=== PATIENT | male | born 1995 | race Two or more races ===

== ENCOUNTER 2020-10-15 17:23 | Observation (INO) | payer BC ==
[~2020-10-15] VITALS: Ht 172.7 cm; Wt 88.4 kg
--- NOTE | 2020-10-15 18:28 | PHYS DOC ---
General Adult EDM: Chief Complaint: ABDOMINAL PAIN HPI: HPI: 25-year-old male who has no past medical or surgical history presents with a chief complaint of right lower quadrant abdominal pain. Patient states abdominal pain started 2200 yesterday. Patient states pain has been constant since onset. Patient states the pain does not radiate. Patient has associated nausea but has not vomited. Pain is exacerbated with movement and relieved with rest. Patient denies any diarrhea states he has had urinary frequency but denies any dysuria. Review of Systems: Review of Systems: Constitutional: Denies fever or chills. [] Eyes: Denies change in visual acuity. [] HENT: Denies nasal congestion or sore throat. [] Respiratory: Denies cough or shortness of breath. [] Cardiovascular: Denies chest pain or edema. [] GI: Positive abdominal pain, Positive nausea, no vomiting, bloody stools or diarrhea. [] : Denies dysuria. [] Musculoskeletal: Denies back pain or joint pain. [] Integument: Denies rash. [] Neurologic: Denies headache, focal weakness or sensory changes. [] Endocrine: Denies polyuria or polydipsia. [] Lymphatic: Denies swollen glands. [] Psychiatric: Denies depression or anxiety. [] Heart Score: Risk Factors: Risk Factors: DM, Current or recent (<one month) smoker, HTN, HLP, family history of CAD, obesity. Risk Scores: Score 0 - 3: 2.5% MACE over next 6 weeks - Discharge Home Score 4 - 6: 20.3% MACE over next 6 weeks - Admit for Clinical Observation Score 7 - 10: 72.7% MACE over next 6 weeks - Early Invasive Strategies Allergies: Allergies: Allergies Coded Allergies Type Severity Reaction Last Updated Verified Penicillins Allergy Unknown 10/15/20 Yes Physical Exam: PE: General: alert, no acute distress. Skin: warm, dry and intact. Head:: Normocephalic, atraumatic. Neck: Trachea midline. Eyes: EOMI, Normal conjunctiva, No drainage CARDIOVASCULAR: Regular rate and rhythm RESPIRATORY: No respiratory distress Back: Full range of motion. MUSCULOSKELETAL: Full range of motion of bilateral upper and lower extremities. GASTROINTESTINAL: Abdomen soft without rebound or guarding. Tenderness to palpation right lower quadrant NEUROLOGICAL: Alert and noted to person, place and time. No neurological deficits observed Psychiatric: Cooperative. Normal judgment EKG: EKG: [] Radiology/Procedures: Radiology/Procedures: [] Impression: IMPRESSION: Findings of acute appendicitis. No evidence for perforation or adjacent abscess. Exposure: One or more of the following in the visualized dose reduction techniqu es were utilized for this examination: 1. Automated exposure control 2. Adjustment of the MA and/or KV according to patient size 3. Use of iterative of reconstructive technique Course & Med Decision Making: Course & Med Decision Making Pertinent Labs and Imaging studies reviewed. (See chart for details) [] Was evaluated for chief complaint. Initial work-up includes laboratory analysis and radiologic imaging. Patient declined any pain or nausea medications at this time.. CT imaging consistent with acute pancreatitis. Results discussed with patient and significant other. Patient started on Levaquin and Flagyl. Patient's pain treated with morphine. Patient also received 1 L IV fluids. Patient requesting to eat--- allowed clear liquid diet then n.p.o. after midnight. Patient admitted hospitalist with general surgery consult. Discussed patient with Dr. Herr at 2030 Marian Disclaimer: Marian Disclaimer: This electronic medical record was generated, in whole or in part, using a voice recognition dictation system. Departure Departure Impression: Primary Impression: Acute appendicitis Disposition: ADMITTED INPT THIS HOSP Admitting Physician: JAZLYN Condition: STABLE Referrals: NO PCP (PCP) JUSTIN GORDON DO Oct 15, 2020 18:28
[2020-10-15 18:30] LABS: BASO # 0.1 x10^3/uL (0.0-0.2); BASO % 1 % (0-3); EOS # 0.2 x10^3/uL (0.0-0.7); EOS % 1 % (0-3); HEMATOCRIT 45.5 % (39.0-53.0); HEMOGLOBIN 15.5 g/dL (13.0-17.5); LYMPH # 2.5 x10^3/uL (1.0-4.8); LYMPH % 19 % (24-48); MEAN CORPUSCULAR HEMOGLOBIN 30 pg (25-35); MEAN CORPUSCULAR HGB CONC 34 g/dL (31-37); MEAN CORPUSCULAR VOLUME 88 fL (79-100); MONO # 0.8 x10^3/uL (0.0-1.1); MONO % 6 % (0-9); NEUT # 9.5 x10^3/uL (1.8-7.7); NEUT % 73 % (31-73); PLATELET COUNT 218 x10^3/uL (140-400); RED BLOOD COUNT 5.18 x10^6/uL (4.30-5.70); RED CELL DISTRIBUTION WIDTH 12.6 % (11.5-14.5)
[2020-10-15 18:43] LABS: CALCIUM 8.7 mg/dL (8.5-10.1); CREATININE 0.9 mg/dL (0.7-1.3); GFR 103.7; POTASSIUM 3.9 mmol/L (3.5-5.1)
[2020-10-15 18:48] LABS: ALBUMIN/GLOBULIN RATIO 1.2 (1.0-1.7); TOTAL BILIRUBIN 0.3 mg/dL (0.2-1.0); TOTAL PROTEIN 7.4 g/dL (6.4-8.2)
[2020-10-15] MEDS ORDERED: CONTRAST GIVEN. MC PRN (19:15)
[2020-10-15] MEDS ORDERED: IOHEXOL 300 MG/ML 100ML VIAL. IV ONE (19:15)
--- NOTE | 2020-10-15 19:45 | RAD ---
Exam: CT of abdomen and pelvis with contrast INDICATION: Abdominal pain, right lower quadrant pain TECHNIQUE: Sequential axial images through the abdomen and pelvis obtained following the administrati on of 75 mL of Omni 300 IV contrast. Sagittal and coronal reformatted images were reconstructed from the axial data and reviewed. Comparisons: None FINDINGS: Heart size is normal. No pericardial effusion. Visualized lung bases are clear. No pleural effusion. Liver, spleen, pancreas, gallbladder and adrenals are unremarkable. No perinephric inflammation or hydronephrosis. No renal or ureteral calculi are identified. Bladder is partially distended and not well evaluated. Prostate is not enlarged. Appendix is dilated with mild adjacent fat stranding. Remainder large and small bowel are unremarkabl e. No obstruction. Abdominal aorta has a normal course and caliber. Abdominal vasculature is patent. No enlarged intra-abdominal lymph nodes are identified. No suspicious osseous lesions or acute fractures. IMPRESSION: Findings of acute appendicitis. No evidence for perforation or adjacent abscess. Exposure: One or more of the following in the visualized dose reduction techniques were utilized for this examination: 1. Automated exposure control 2. Adjustment of the MA and/or KV according to patient size 3. Use of iterative of reconstructive technique Electronically signed by: Prem Diciknson MD (10/15/2020 7:43 PM) [facility]
[2020-10-15] MEDS ORDERED: MORPHINE SULFATE 4 MG/ML VIAL. IV ONE (20:30)
[2020-10-15] MEDS ORDERED: IV NORMAL SALINE 1000ML BAG 1,000 ML IV ONE (20:30)
[2020-10-15 21:50] VITALS: BP 121/78
[2020-10-15] MEDS: MORPHINE SULFATE 4 MG/ML VIAL. IV PRN (23:07)
[2020-10-16] MEDS: ONDANSETRON PF 4 MG/2 ML VIAL. IV PRN ×2 (00:04→18:22)
[2020-10-16 00:32] LABS: AMPHETAMINE/METHAMPHETAMINE NEG (NEG); BARBITURATES NEG (NEG); BENZODIAZEPINES NEG (NEG); CANNABINOIDS NEG (NEG); COCAINE NEG (NEG); METHADONE NEG (NEG); OPIATES POS (NEG); PHENCYCLIDINE NEG (NEG)
[2020-10-16 03:00] VITALS: BP 114/60
[2020-10-16] MEDS ORDERED: BUPIVACAINE-EPI 0.25% 30 ML VIAL KIT. ONE (05:59)
[2020-10-16] MEDS ORDERED: BUPIVACAINE-EPI 0.5% 30 ML VIAL KIT. ONE (06:15)
[2020-10-16] MEDS ORDERED: PROPOFOL 10 MG/ML (20ML) VIAL. IV ONE (06:27)
[2020-10-16] MEDS ORDERED: DEXAMETHASONE SOD PHOS 4 MG/ML VIAL ONE (06:27)
[2020-10-16] MEDS ORDERED: ROCURONIUM 50 MG/5 ML VIAL. ONE (06:27)
[2020-10-16] MEDS ORDERED: ONDANSETRON PF 4 MG/2 ML VIAL. ONE (06:27)
[2020-10-16] MEDS ORDERED: KETOROLAC 30 MG/ML VIAL. ONE (06:27)
[2020-10-16] MEDS ORDERED: fentaNYL PF VIAL 100 MCG/2 ML VIAL ONE (06:27)
--- NOTE | 2020-10-16 06:44 | PDOC2 ---
CONSULT Date of Consult Date of Consult DATE: 10/16/20 TIME: 06:42 History of Present Illness Reason for Visit: The patient is a 25 year old male who reported with a 1 day history of RLQ pain. He denies fever or vomiting. The ER evaluation included a CT scan which was consistent with appendicitis. Past Medical History Past Medical History denies Past Surgical History Past Surgical History parotid gland surgery Social History <1 pack per day ALCOHOL: social Current Problem List Problem List Problems Medical Problems: (1) Acute appendicitis Status: Acute Current Medications Current Medications Current Medications Iohexol (Omnipaque 300 Mg/ml) 75 ml 1X ONCE IV Last administered on 10/15/20at 19:28; Start 10/15/20 at 19:15; Stop 10/15/20 at 19:16; Status DC Info (CONTRAST GIVEN -- Rx MONITORING) 1 each PRN DAILY PRN MC SEE COMMENTS; Start 10/15/20 at 19:15; Stop 10/17/20 at 19:14 Ondansetron HCl (Zofran) 4 mg PRN Q8HRS PRN IV NAUSEA/VOMITING Last administered on 10/16/20at 00:04; Start 10/15/20 at 20:15; Stop 10/16/20 at 20:14 Morphine Sulfate (Morphine Sulfate) 4 mg PRN Q2HR PRN IV PAIN Last administered on 10/15/20at 23:07; Start 10/15/20 at 20:15; Stop 10/16/20 at 20:14 Morphine Sulfate (Morphine Sulfate) 4 mg 1X ONCE IV Last administered on 10/15/20at 20:26; Start 10/15/20 at 20:30; Stop 10/15/20 at 20:31; Status DC Sodium Chloride 1,000 ml @ 1,000 mls/hr 1X ONCE IV Last administered on 10/15/20at 20:26; Start 10/15/20 at 20:30; Stop 10/15/20 at 21:29; Status DC Levofloxacin/ Dextrose 150 ml @ 100 mls/hr Q25H IV ; Start 10/15/20 at 21:00; Stop 10/15/20 at 22:06; Status DC Metronidazole 100 ml @ 100 mls/hr Q8HRS IV Last administered on 10/16/20at 04:46; Start 10/16/20 at 06:00 Metronidazole 100 ml @ 100 mls/hr 1X ONCE IV Last administered on 10/15/20at 21:17; Start 10/15/20 at 21:00; Stop 10/15/20 at 21:59; Status DC Levofloxacin/ Dextrose 150 ml @ 100 mls/hr Q24H IV ; Start 10/15/20 at 22:15; Status Cancel Levofloxacin/ Dextrose 150 ml @ 100 mls/hr Q24H IV Last administered on 10/15/20at 23:11; Start 10/15/20 at 23:00 Bupivacaine HCl/ Epinephrine Bitart (Sensorcain-Epi 0.25% Kit) 30 ml STK-MED ONCE .ROUTE ; Start 10/16/20 at 05:59; Stop 10/16/20 at 06:00; Status DC Bupivacaine HCl/ Epinephrine Bitart (Sensorcain-Epi 0.5% Kit) 30 ml STK-MED ONCE .ROUTE ; Start 10/16/20 at 06:15; Stop 10/16/20 at 06:15; Status DC Fentanyl Citrate (Fentanyl 2ml Vial) 100 mcg STK-MED ONCE .ROUTE ; Start 10/16/20 at 06:27; Stop 10/16/20 at 06:27; Status DC Propofol (Diprivan) 200 mg STK-MED ONCE IV ; Start 10/16/20 at 06:27; Stop 10/16/20 at 06:27; Status DC Dexamethasone Sodium Phosphate (Decadron) 4 mg STK-MED ONCE .ROUTE ; Start 10/16/20 at 06:27; Stop 10/16/20 at 06:27; Status DC Ondansetron HCl (Zofran) 4 mg STK-MED ONCE .ROUTE ; Start 10/16/20 at 06:27; Stop 10/16/20 at 06:27; Status DC Ketorolac Tromethamine (Toradol 30mg Vial) 30 mg STK-MED ONCE .ROUTE ; Start 10/16/20 at 06:27; Stop 10/16/20 at 06:27; Status DC Rocuronium [place] (Zemuron) 50 mg STK-MED ONCE .ROUTE ; Start 10/16/20 at 06:27; Stop 10/16/20 at 06:28; Status DC Fentanyl Citrate (Fentanyl 2ml Vial) 25 mcg PRN Q5MIN PRN IVP MILD PAIN 1-3; Start 10/16/20 at 06:45; Stop 10/17/20 at 06:44 Fentanyl Citrate (Fentanyl 2ml Vial) 50 mcg PRN Q5MIN PRN IVP MODERATE PAIN 4- 6; Start 10/16/20 at 06:45; Stop 10/17/20 at 06:44 Morphine Sulfate (Morphine Sulfate) 1 mg PRN Q10MIN PRN IVP SEVERE PAIN 7-10; Start 10/16/20 at 06:45; Stop 10/17/20 at 06:44 Ringer's Solution 1,000 ml @ 30 mls/hr Q24H IV ; Start 10/16/20 at 06:45; Stop 10/16/20 at 18:44 Hydromorphone HCl (Dilaudid) 0.5 mg PRN Q10MIN PRN IVP SEVERE PAIN 7-10, 2nd CHOICE; Start 10/16/20 at 06:45; Stop 10/17/20 at 06:44 Prochlorperazine Edisylate (Compazine) 5 mg PACU PRN PRN IVP NAUSEA, MRX1; Start 10/16/20 at 06:45; Stop 10/17/20 at 06:44 Active Scripts Active Reported No Known Medications Prior To Admisstion (Info) Each 1 Each MC 1X Allergies Allergies: Coded Allergies: Penicillins (Verified Allergy, Intermediate, 10/15/20) ROS General: No: Chills, Night Sweats, Fatigue, Malaise, Appetite, Other PSYCHOLOGICAL ROS: No: Anxiety, Behavioral Disorder, Concentration difficultie, Decreased libido, Depression, Disorientation, Hallucinations, Hostility, Irritablity, Memory difficulties, Mood Swings, Obsessive thoughts, Physical abuse, Sexual abuse, Sleep disturbances, Suicidal ideation, Other Eyes: No Blurry vision, No Decreased vision, No Double vision, No Dry eyes, No Excessive tearing, No Eye Pain, No Itchy Eyes, No Loss of vision, No Photophobia, No Scotomata, No Uses contacts, No Uses glasses, No Other HEENT: No: Heacaches, Visual Changes, Hearing change, Nasal congestion, Nasal discharge, Oral lesions, Sinus pain, Sore Throat, Epistaxis, Sneezing, Snoring, Tinnitus, Vertigo, Vocal changes, Other Hematological and Lymphatic: No: Bleeding Problems, Blood Clots, Blood Transfusions, Brusing, Night Sweats, Pallor, Swollen Lymph Nodes, Other ENDOCRINE: No: Breast Changes, Galactorrhea, Hair Pattern Changes, Hot Flashes, Malaise/lethargy, Mood Swings, Palpitations, Polydipsia/polyuria, Skin Changes, Temperature Intolerance, Unexpected Weight Changes, Other Cardiovascular: No Chest Pain, No Palpitations, No Orthopnea, No Paroxysmal Noc. Dyspnea, No Edema, No Lt Headedness, No Other Gastrointestinal: Yes Abdominal Pain Genitourinary: No Dysuria, No Frequency, No Incontinence, No Hematuria, No Retention, No Discharge, No Urgency, No Pain, No Flank Pain, No Other, No , No , No , No , No , No , No Musculoskeletal: No Gait Disturbance, No Joint Pain, No Joint Stiffness, No Joint Swelling, No Muscle Pain, No Muscular Weakness, No Pain In:, No Swelling In:, No Other Neurological: No Behavorial Changes, No Bowel/Bladder ControlChng, No Confusion, No Dizziness, No Gait Disturbance, No Headaches, No Impaired Coord/balance, No Memory Loss, No Numbness/Tingling, No Seizures, No Speech Problems, No Tremors, No Visual Changes, No Weakness, No Other Skin: No Dry Skin, No Eczema, No Hair Changes, No Lumps, No Mole Changes, No Mottling, No Nail Changes, No Pruritus, No Rash, No Skin Lesion Changes, No Other, No Acne Physical Exam General: Alert, Oriented X3, Cooperative HEENT: Atraumatic Lungs: Clear to auscultation Heart: Regular rate Abdomen: Soft (tender in RLQ) Extremities: No clubbing, No cyanosis Skin: No rashes, No breakdown Neuro: Normal speech Psych/Mental Status: Mental status NL MUSCULOSKELETAL: No joint tenderness Vitals VITALS Vital Signs Date Time Temp Pulse Resp B/P (MAP) Pulse Ox O2 Delivery O2 Flow Rate FiO2 10/16/20 03:00 97.9 93 16 114/60 (78) 98 Room Air 97.9 Labs Labs Laboratory Tests Test 10/15/20 18:25 10/15/20 21:20 10/16/20 00:10 White Blood Count 13.0 x10^3/uL (4.0-11.0) Red Blood Count 5.18 x10^6/uL (4.30-5.70) Hemoglobin 15.5 g/dL (13.0-17.5) Hematocrit 45.5 % (39.0-53.0) Mean Corpuscular Volume 88 fL (79-100) Mean Corpuscular Hemoglobin 30 pg (25-35) Mean Corpuscular Hemoglobin Concent 34 g/dL (31-37) Red Cell Distribution Width 12.6 % (11.5-14.5) Platelet Count 218 x10^3/uL (140-400) Neutrophils (%) (Auto) 73 % (31-73) Lymphocytes (%) (Auto) 19 % (24-48) Monocytes (%) (Auto) 6 % (0-9) Eosinophils (%) (Auto) 1 % (0-3) Basophils (%) (Auto) 1 % (0-3) Neutrophils # (Auto) 9.5 x10^3/uL (1.8-7.7) Lymphocytes # (Auto) 2.5 x10^3/uL (1.0-4.8) Monocytes # (Auto) 0.8 x10^3/uL (0.0-1.1) Eosinophils # (Auto) 0.2 x10^3/uL (0.0-0.7) Basophils # (Auto) 0.1 x10^3/uL (0.0-0.2) Sodium Level 139 mmol/L (136-145) Potassium Level 3.9 mmol/L (3.5-5.1) Chloride Level 103 mmol/L (98-107) Carbon Dioxide Level 27 mmol/L (21-32) Anion Gap 9 (6-14) Blood Urea Nitrogen 16 mg/dL (8-26) Creatinine 0.9 mg/dL (0.7-1.3) Estimated GFR (Cockcroft-Gault) 103.7 BUN/Creatinine Ratio 18 (6-20) Glucose Level 96 mg/dL (70-99) Calcium Level 8.7 mg/dL (8.5-10.1) Total Bilirubin 0.3 mg/dL (0.2-1.0) Aspartate Amino Transf (AST/SGOT) 20 U/L (15-37) Alanine Aminotransferase (ALT/SGPT) 30 U/L (16-63) Alkaline Phosphatase 72 U/L (46-116) Total Protein 7.4 g/dL (6.4-8.2) Albumin 4.0 g/dL (3.4-5.0) Albumin/Globulin Ratio 1.2 (1.0-1.7) Lipase 87 U/L (73-393) SARS-CoV-2 Antigen (Rapid) Negative (NEGATIVE) Urine Opiates Screen Pos (NEG) Urine Methadone Screen Neg (NEG) Urine Barbiturates Neg (NEG) Urine Phencyclidine Screen Neg (NEG) Urine Amphetamine/Methamphetamine Neg (NEG) Urine Benzodiazepines Screen Neg (NEG) Urine Cocaine Screen Neg (NEG) Urine Cannabinoids Screen Neg (NEG) Urine Ethyl Alcohol Neg (NEG) Laboratory Tests Test 10/15/20 18:25 10/15/20 21:20 10/16/20 00:10 White Blood Count 13.0 x10^3/uL (4.0-11.0) Red Blood Count 5.18 x10^6/uL (4.30-5.70) Hemoglobin 15.5 g/dL (13.0-17.5) Hematocrit 45.5 % (39.0-53.0) Mean Corpuscular Volume 88 fL (79-100) Mean Corpuscular Hemoglobin 30 pg (25-35) Mean Corpuscular Hemoglobin Concent 34 g/dL (31-37) Red Cell Distribution Width 12.6 % (11.5-14.5) Platelet Count 218 x10^3/uL (140-400) Neutrophils (%) (Auto) 73 % (31-73) Lymphocytes (%) (Auto) 19 % (24-48) Monocytes (%) (Auto) 6 % (0-9) Eosinophils (%) (Auto) 1 % (0-3) Basophils (%) (Auto) 1 % (0-3) Neutrophils # (Auto) 9.5 x10^3/uL (1.8-7.7) Lymphocytes # (Auto) 2.5 x10^3/uL (1.0-4.8) Monocytes # (Auto) 0.8 x10^3/uL (0.0-1.1) Eosinophils # (Auto) 0.2 x10^3/uL (0.0-0.7) Basophils # (Auto) 0.1 x10^3/uL (0.0-0.2) Sodium Level 139 mmol/L (136-145) Potassium Level 3.9 mmol/L (3.5-5.1) Chloride Level 103 mmol/L (98-107) Carbon Dioxide Level 27 mmol/L (21-32) Anion Gap 9 (6-14) Blood Urea Nitrogen 16 mg/dL (8-26) Creatinine 0.9 mg/dL (0.7-1.3) Estimated GFR (Cockcroft-Gault) 103.7 BUN/Creatinine Ratio 18 (6-20) Glucose Level 96 mg/dL (70-99) Calcium Level 8.7 mg/dL (8.5-10.1) Total Bilirubin 0.3 mg/dL (0.2-1.0) Aspartate Amino Transf (AST/SGOT) 20 U/L (15-37) Alanine Aminotransferase (ALT/SGPT) 30 U/L (16-63) Alkaline Phosphatase 72 U/L (46-116) Total Protein 7.4 g/dL (6.4-8.2) Albumin 4.0 g/dL (3.4-5.0) Albumin/Globulin Ratio 1.2 (1.0-1.7) Lipase 87 U/L (73-393) SARS-CoV-2 Antigen (Rapid) Negative (NEGATIVE) Urine Opiates Screen Pos (NEG) Urine Methadone Screen Neg (NEG) Urine Barbiturates Neg (NEG) Urine Phencyclidine Screen Neg (NEG) Urine Amphetamine/Methamphetamine Neg (NEG) Urine Benzodiazepines Screen Neg (NEG) Urine Cocaine Screen Neg (NEG) Urine Cannabinoids Screen Neg (NEG) Urine Ethyl Alcohol Neg (NEG) Images Images CT abdomen/pelvis: IMPRESSION: Findings of acute appendicitis. No evidence for perforation or adjacent abscess. Assessment/Plan Assessment/Plan RLQ pain, suspect appendicitis, plan to OR for laparoscopy. MAXWELL LEPE MD Oct 16, 2020 06:44
[2020-10-16] MEDS ORDERED: PROCHLORPERAZINE 10 MG/2 ML VIAL. IVP PRN (06:45)
[2020-10-16] MEDS ORDERED: HYDROmorphone 2 MG/ML VIAL IVP PRN (06:45)
[2020-10-16] MEDS ORDERED: MORPHINE SULFATE 2 MG/ML VIAL. IVP PRN (06:45)
[2020-10-16] MEDS ORDERED: IV RINGERS,LACTATED 1000ML 1,000 ML IV SCH (06:45)
[2020-10-16] MEDS ORDERED: fentaNYL PF VIAL 100 MCG/2 ML VIAL IVP PRN ×2 (06:45)
--- NOTE | 2020-10-16 07:50 | PDOC4 ---
Operative Note Operative Note Preoperative Diagnosis: Acute Appendicitis Postoperative Diagnosis: Same Procedure: Laparoscopic appendectomy Surgeon: Nemesio Anesthesia: Gen. EBL: 10 mL Specimen: Appendix to pathology Drains: None Complications: None Indication: The patient is a 25-year-old male who reported to the emergency department with abdominal pain. The evaluation is consistent with acute appendicitis. The patient was offered surgical treatment with a laparoscopic appendectomy. The risks of surgery were discussed which include bleeding, infection, visceral injury, pain, anesthetic risk, potential need for additional surgery or procedure. The patient understands and would like to proceed. Description: The patient was taken to the operating room and placed supine on the operating table. Gen. anesthesia was performed. The abdomen was prepped with ChloraPrep and draped in a standard surgical manner. A supraumbilical incision was made through which a veress needle was inserted and a pneumoperitoneum was created. A visualized 5 mm trocar was inserted and the laparoscope was introd uced. In the left lower quadrant a 5 mm trocar was inserted. In the suprapubic region a 12 mm trocar was inserted. The appendix was identified and appeared inflamed consistent with acute appendicitis. There was no clear evidence of perforation or periappendiceal abscess. The mesoappendix was bluntly from the appendix. The mesoappendix was controlled using several clips and it was divided. The appendix was then amputated off the cecum using an Endo MIKE 45 stapling device. The appendix was then placed in an endoscopic bag and extracted at the suprapubic incision site. The fascia there was closed with 0 Vicryl and infiltrated with half percent Marcaine with epinephrine. The RLQ was visualized and the staple line appeared well intact and hemostasis was good. No other abnormalities were identified grossly. The remaining ports were removed and the pneumoperitoneum was relieved. The skin at all incision sites was closed with 4- 0 Monocryl. Steri-Strips and dressings were applied. The patient tolerated the procedure well and was sent to the recovery room in stable condition. At the end of the case all counts were correct. MAXWELL LEPE MD Oct 16, 2020 07:50
[2020-10-16] MEDS ORDERED: oxyCODONE/APAP 5/325 1 TAB TABLET PO PRN (08:00)
[2020-10-16] MEDS ORDERED: PROCHLORPERAZINE 10 MG/2 ML VIAL. ONE (08:43)
[2020-10-16 09:35] LABS: BASO % 0 % (0-3); EOS % 0 % (0-3); HEMATOCRIT 41.9 % (39.0-53.0); HEMOGLOBIN 14.1 g/dL (13.0-17.5); LYMPH # 0.8 x10^3/uL (1.0-4.8); LYMPH % 5 % (24-48); MEAN CORPUSCULAR HEMOGLOBIN 30 pg (25-35); MEAN CORPUSCULAR HGB CONC 34 g/dL (31-37); MEAN CORPUSCULAR VOLUME 88 fL (79-100); MONO # 0.5 x10^3/uL (0.0-1.1); MONO % 3 % (0-9); NEUT # 13.5 x10^3/uL (1.8-7.7); NEUT % 92 % (31-73); PLATELET COUNT 194 x10^3/uL (140-400); RED BLOOD COUNT 4.76 x10^6/uL (4.30-5.70); RED CELL DISTRIBUTION WIDTH 12.8 % (11.5-14.5); WHITE BLOOD COUNT 14.7 x10^3/uL (4.0-11.0)
[2020-10-16 09:47] LABS: CALCIUM 8.5 mg/dL (8.5-10.1); GFR 91.8; POTASSIUM 3.9 mmol/L (3.5-5.1)
--- NOTE | 2020-10-16 10:18 | PDOC1 ---
History and Physical Date of Admission Date of Admission DATE: 10/16/20 TIME: 10:17 Identification/Chief Complaint Chief Complaint RLQ ABD PAIN History of Present Illness History of Present Illness SEEN IN ER WITH acute appendicitis 25-year-old male who has no past medical or surgical history presents with a chief complaint of right lower quadrant abdominal pain. abdominal pain started 2200 2-27 . constant since onset. does not radiate. // associated nausea but has not vomited. relieved with rest. Past Medical History Cardiovascular: No pertinent hx Pulmonary: No pertinent hx Heme/Onc: No pertinent hx Hepatobiliary: No pertinent hx Psych: No pertinent hx Rheumatologic: No pertinent hx Renal/: No pertinent hx Endocrine: No pertinent hx Family History Family History: Hypertension Social History Smoke: <1 pack per day ALCOHOL: occassional Drugs: None Current Problem List Problem List Problems Medical Problems: (1) Acute appendicitis Status: Acute Current Medications Current Medications Current Medications Iohexol (Omnipaque 300 Mg/ml) 75 ml 1X ONCE IV Last administered on 10/15/20at 19:28; Start 10/15/20 at 19:15; Stop 10/15/20 at 19:16; Status DC Info (CONTRAST GIVEN -- Rx MONITORING) 1 each PRN DAILY PRN MC SEE COMMENTS; Start 10/15/20 at 19:15; Stop 10/17/20 at 19:14 Ondansetron HCl (Zofran) 4 mg PRN Q8HRS PRN IV NAUSEA/VOMITING Last administered on 10/16/20at 00:04; Start 10/15/20 at 20:15; Stop 10/16/20 at 20:14 Morphine Sulfate (Morphine Sulfate) 4 mg PRN Q2HR PRN IV PAIN Last administered on 10/15/20at 23:07; Start 10/15/20 at 20:15; Stop 10/16/20 at 20:14 Morphine Sulfate (Morphine Sulfate) 4 mg 1X ONCE IV Last administered on 10/15/20at 20:26; Start 10/15/20 at 20:30; Stop 10/15/20 at 20:31; Status DC Sodium Chloride 1,000 ml @ 1,000 mls/hr 1X ONCE IV Last administered on 10/15/20at 20:26; Start 10/15/20 at 20:30; Stop 10/15/20 at 21:29; Status DC Levofloxacin/ Dextrose 150 ml @ 100 mls/hr Q25H IV ; Start 10/15/20 at 21:00; Stop 10/15/20 at 22:06; Status DC Metronidazole 100 ml @ 100 mls/hr Q8HRS IV Last administered on 10/16/20at 04:46; Start 10/16/20 at 06:00 Metronidazole 100 ml @ 100 mls/hr 1X ONCE IV Last administered on 10/15/20at 21:17; Start 10/15/20 at 21:00; Stop 10/15/20 at 21:59; Status DC Levofloxacin/ Dextrose 150 ml @ 100 mls/hr Q24H IV ; Start 10/15/20 at 22:15; Status Cancel Levofloxacin/ Dextrose 150 ml @ 100 mls/hr Q24H IV Last administered on 10/15/20at 23:11; Start 10/15/20 at 23:00 Bupivacaine HCl/ Epinephrine Bitart (Sensorcain-Epi 0.25% Kit) 30 ml STK-MED ONCE .ROUTE ; Start 10/16/20 at 05:59; Stop 10/16/20 at 06:00; Status DC Bupivacaine HCl/ Epinephrine Bitart (Sensorcain-Epi 0.5% Kit) 30 ml STK-MED ONCE .ROUTE Last administered on 10/16/20at 07:05; Start 10/16/20 at 06:15; Stop 10/16/20 at 06:15; Status DC Fentanyl Citrate (Fentanyl 2ml Vial) 100 mcg STK-MED ONCE .ROUTE ; Start 10/16/20 at 06:27; Stop 10/16/20 at 06:27; Status DC Propofol (Diprivan) 200 mg STK-MED ONCE IV ; Start 10/16/20 at 06:27; Stop 10/16/20 at 06:27; Status DC Dexamethasone Sodium Phosphate (Decadron) 4 mg STK-MED ONCE .ROUTE ; Start 10/16/20 at 06:27; Stop 10/16/20 at 06:27; Status DC Ondansetron HCl (Zofran) 4 mg STK-MED ONCE .ROUTE ; Start 10/16/20 at 06:27; Stop 10/16/20 at 06:27; Status DC Ketorolac Tromethamine (Toradol 30mg Vial) 30 mg STK-MED ONCE .ROUTE ; Start 10/16/20 at 06:27; Stop 10/16/20 at 06:27; Status DC Rocuronium [place] (Zemuron) 50 mg STK-MED ONCE .ROUTE ; Start 10/16/20 at 06:27; Stop 10/16/20 at 06:28; Status DC Fentanyl Citrate (Fentanyl 2ml Vial) 25 mcg PRN Q5MIN PRN IVP MILD PAIN 1-3; Start 10/16/20 at 06:45; Stop 10/17/20 at 06:44 Fentanyl Citrate (Fentanyl 2ml Vial) 50 mcg PRN Q5MIN PRN IVP MODERATE PAIN 4- 6; Start 10/16/20 at 06:45; Stop 10/17/20 at 06:44 Morphine Sulfate (Morphine Sulfate) 1 mg PRN Q10MIN PRN IVP SEVERE PAIN 7-10; Start 10/16/20 at 06:45; Stop 10/17/20 at 06:44 Ringer's Solution 1,000 ml @ 30 mls/hr Q24H IV ; Start 10/16/20 at 06:45; Stop 10/16/20 at 18:44 Hydromorphone HCl (Dilaudid) 0.5 mg PRN Q10MIN PRN IVP SEVERE PAIN 7-10, 2nd CHOICE; Start 10/16/20 at 06:45; Stop 10/17/20 at 06:44 Prochlorperazine Edisylate (Compazine) 5 mg PACU PRN PRN IVP NAUSEA, MRX1 Last administered on 10/16/20at 08:52; Start 10/16/20 at 06:45; Stop 10/17/20 at 06:44 Oxycodone/ Acetaminophen (Percocet 5/325) 1 tab PRN Q4HRS PRN PO MODERATE PAIN; Start 10/16/20 at 08:00 Oxycodone/ Acetaminophen (Percocet 5/325) 2 tab PRN Q4HRS PRN PO SEVERE PAIN; Start 10/16/20 at 08:00 Prochlorperazine Edisylate (Compazine) 10 mg STK-MED ONCE .ROUTE ; Start 10/16/20 at 08:43; Stop 10/16/20 at 08:43; Status DC Active Scripts Active Reported No Known Medications Prior To Admisstion (Info) Each 1 Each MC 1X Allergies Allergies: Coded Allergies: Penicillins (Verified Allergy, Intermediate, 10/15/20) ROS Review of System Review of Systems: Constitutional: Denies fever or chills. [] Eyes: Denies change in visual acuity. [] HENT: Denies nasal congestion or sore throat. [] Respiratory: Denies cough or shortness of breath. [] Cardiovascular: Denies chest pain or edema. [] GI: Positive abdominal pain, Positive nausea, no vomiting, bloody stools or diarrhea. [] : Denies dysuria. [] Musculoskeletal: Denies back pain or joint pain. [] Integument: Denies rash. [] Neurologic: Denies headache, focal weakness or sensory changes. [] Endocrine: Denies polyuria or polydipsia. [] Lymphatic: Denies swollen glands. [] Psychiatric: Denies depression or anxiety. [] General: YES: Appetite; No: Chills, Night Sweats, Fatigue, Malaise, Other PSYCHOLOGICAL ROS: No: Anxiety, Behavioral Disorder, Concentration difficultie, Decreased libido, Depression, Disorientation, Hallucinations, Hostility, Irritablity, Memory difficulties, Mood Swings, Obsessive thoughts, Physical abuse, Sexual abuse, Sleep disturbances, Suicidal ideation, Other Eyes: No Blurry vision, No Decreased vision, No Double vision, No Dry eyes, No Excessive tearing, No Eye Pain, No Itchy Eyes, No Loss of vision, No Photophobia, No Scotomata, No Uses contacts, No Uses glasses, No Other HEENT: No: Heacaches, Visual Changes, Hearing change, Nasal congestion, Nasal discharge, Oral lesions, Sinus pain, Sore Throat, Epistaxis, Sneezing, Snoring, Tinnitus, Vertigo, Vocal changes, Other Hematological and Lymphatic: No: Bleeding Problems, Blood Clots, Blood Transfusions, Brusing, Night Sweats, Pallor, Swollen Lymph Nodes, Other Respiratory: No: Cough, Hemoptysis, Orthopnea, Pleuritic Pain, Shortness of breath, SOB with excertion, Sputum Changes, Stridor, Tachypnea, Wheezing, Other Cardiovascular: No Chest Pain, No Palpitations, No Orthopnea, No Paroxysmal Noc. Dyspnea, No Edema, No Lt Headedness, No Other Genitourinary: No Dysuria, No Frequency, No Incontinence, No Hematuria, No Retention, No Discharge, No Urgency, No Pain, No Flank Pain, No Other, No , No , No , No , No , No , No Musculoskeletal: No Gait Disturbance, No Joint Pain, No Joint Stiffness, No Joint Swelling, No Muscle Pain, No Muscular Weakness, No Pain In:, No Swelling In:, No Other Skin: No Dry Skin, No Eczema, No Hair Changes, No Lumps, No Mole Changes, No Mottling, No Nail Changes, No Pruritus, No Rash, No Skin Lesion Changes, No Other, No Acne Physical Exam General: Alert, Oriented X3, Cooperative, No acute distress HEENT: Atraumatic, PERRLA, EOMI, Mucous membr. moist/pink Lungs: Clear to auscultation, Normal air movement Heart: RRR, no thrills, no gallops, no murmurs Breasts: Not examined Abdomen: Other (rlq tender) Rectal Exam: not examined PELVIC: Examination not indicated Extremities: No cyanosis Neuro: Normal speech, Strength at 5/5 X4 ext, Cranial nerves 3-12 NL Psych/Mental Status: Mental status NL, Mood NL Vitals Vitals Vital Signs Date Time Temp Pulse Resp B/P (MAP) Pulse Ox O2 Delivery O2 Flow Rate FiO2 10/16/20 08:00 98.7 78 20 113/54 100 Simple Mask 12 98.7 Labs Labs Laboratory Tests Test 10/15/20 18:25 10/15/20 21:20 10/16/20 00:10 10/16/20 09:15 White Blood Count 13.0 x10^3/uL (4.0-11.0) 14.7 x10^3/uL (4.0-11.0) Red Blood Count 5.18 x10^6/uL (4.30-5.70) 4.76 x10^6/uL (4.30-5.70) Hemoglobin 15.5 g/dL (13.0-17.5) 14.1 g/dL (13.0-17.5) Hematocrit 45.5 % (39.0-53.0) 41.9 % (39.0-53.0) Mean Corpuscular Volume 88 fL (79-100) 88 fL (79-100) Mean Corpuscular Hemoglobin 30 pg (25-35) 30 pg (25-35) Mean Corpuscular Hemoglobin Concent 34 g/dL (31-37) 34 g/dL (31-37) Red Cell Distribution Width 12.6 % (11.5-14.5) 12.8 % (11.5-14.5) Platelet Count 218 x10^3/uL (140-400) 194 x10^3/uL (140-400) Neutrophils (%) (Auto) 73 % (31-73) 92 % (31-73) Lymphocytes (%) (Auto) 19 % (24-48) 5 % (24-48) Monocytes (%) (Auto) 6 % (0-9) 3 % (0-9) Eosinophils (%) (Auto) 1 % (0-3) 0 % (0-3) Basophils (%) (Auto) 1 % (0-3) 0 % (0-3) Neutrophils # (Auto) 9.5 x10^3/uL (1.8-7.7) 13.5 x10^3/uL (1.8-7.7) Lymphocytes # (Auto) 2.5 x10^3/uL (1.0-4.8) 0.8 x10^3/uL (1.0-4.8) Monocytes # (Auto) 0.8 x10^3/uL (0.0-1.1) 0.5 x10^3/uL (0.0-1.1) Eosinophils # (Auto) 0.2 x10^3/uL (0.0-0.7) 0.0 x10^3/uL (0.0-0.7) Basophils # (Auto) 0.1 x10^3/uL (0.0-0.2) 0.0 x10^3/uL (0.0-0.2) Sodium Level 139 mmol/L (136-145) 139 mmol/L (136-145) Potassium Level 3.9 mmol/L (3.5-5.1) 3.9 mmol/L (3.5-5.1) Chloride Level 103 mmol/L (98-107) 106 mmol/L (98-107) Carbon Dioxide Level 27 mmol/L (21-32) 25 mmol/L (21-32) Anion Gap 9 (6-14) 8 (6-14) Blood Urea Nitrogen 16 mg/dL (8-26) 11 mg/dL (8-26) Creatinine 0.9 mg/dL (0.7-1.3) 1.0 mg/dL (0.7-1.3) Estimated GFR (Cockcroft-Gault) 103.7 91.8 BUN/Creatinine Ratio 18 (6-20) Glucose Level 96 mg/dL (70-99) 132 mg/dL (70-99) Calcium Level 8.7 mg/dL (8.5-10.1) 8.5 mg/dL (8.5-10.1) Total Bilirubin 0.3 mg/dL (0.2-1.0) Aspartate Amino Transf (AST/SGOT) 20 U/L (15-37) Alanine Aminotransferase (ALT/SGPT) 30 U/L (16-63) Alkaline Phosphatase 72 U/L (46-116) Total Protein 7.4 g/dL (6.4-8.2) Albumin 4.0 g/dL (3.4-5.0) Albumin/Globulin Ratio 1.2 (1.0-1.7) Lipase 87 U/L (73-393) SARS-CoV-2 Antigen (Rapid) Negative (NEGATIVE) Urine Opiates Screen Pos (NEG) Urine Methadone Screen Neg (NEG) Urine Barbiturates Neg (NEG) Urine Phencyclidine Screen Neg (NEG) Urine Amphetamine/Methamphetamine Neg (NEG) Urine Benzodiazepines Screen Neg (NEG) Urine Cocaine Screen Neg (NEG) Urine Cannabinoids Screen Neg (NEG) Urine Ethyl Alcohol Neg (NEG) Laboratory Tests Test 10/15/20 18:25 10/15/20 21:20 10/16/20 00:10 10/16/20 09:15 White Blood Count 13.0 x10^3/uL (4.0-11.0) 14.7 x10^3/uL (4.0-11.0) Red Blood Count 5.18 x10^6/uL (4.30-5.70) 4.76 x10^6/uL (4.30-5.70) Hemoglobin 15.5 g/dL (13.0-17.5) 14.1 g/dL (13.0-17.5) Hematocrit 45.5 % (39.0-53.0) 41.9 % (39.0-53.0) Mean Corpuscular Volume 88 fL (79-100) 88 fL (79-100) Mean Corpuscular Hemoglobin 30 pg (25-35) 30 pg (25-35) Mean Corpuscular Hemoglobin Concent 34 g/dL (31-37) 34 g/dL (31-37) Red Cell Distribution Width 12.6 % (11.5-14.5) 12.8 % (11.5-14.5) Platelet Count 218 x10^3/uL (140-400) 194 x10^3/uL (140-400) Neutrophils (%) (Auto) 73 % (31-73) 92 % (31-73) Lymphocytes (%) (Auto) 19 % (24-48) 5 % (24-48) Monocytes (%) (Auto) 6 % (0-9) 3 % (0-9) Eosinophils (%) (Auto) 1 % (0-3) 0 % (0-3) Basophils (%) (Auto) 1 % (0-3) 0 % (0-3) Neutrophils # (Auto) 9.5 x10^3/uL (1.8-7.7) 13.5 x10^3/uL (1.8-7.7) Lymphocytes # (Auto) 2.5 x10^3/uL (1.0-4.8) 0.8 x10^3/uL (1.0-4.8) Monocytes # (Auto) 0.8 x10^3/uL (0.0-1.1) 0.5 x10^3/uL (0.0-1.1) Eosinophils # (Auto) 0.2 x10^3/uL (0.0-0.7) 0.0 x10^3/uL (0.0-0.7) Basophils # (Auto) 0.1 x10^3/uL (0.0-0.2) 0.0 x10^3/uL (0.0-0.2) Sodium Level 139 mmol/L (136-145) 139 mmol/L (136-145) Potassium Level 3.9 mmol/L (3.5-5.1) 3.9 mmol/L (3.5-5.1) Chloride Level 103 mmol/L (98-107) 106 mmol/L (98-107) Carbon Dioxide Level 27 mmol/L (21-32) 25 mmol/L (21-32) Anion Gap 9 (6-14) 8 (6-14) Blood Urea Nitrogen 16 mg/dL (8-26) 11 mg/dL (8-26) Creatinine 0.9 mg/dL (0.7-1.3) 1.0 mg/dL (0.7-1.3) Estimated GFR (Cockcroft-Gault) 103.7 91.8 BUN/Creatinine Ratio 18 (6-20) Glucose Level 96 mg/dL (70-99) 132 mg/dL (70-99) Calcium Level 8.7 mg/dL (8.5-10.1) 8.5 mg/dL (8.5-10.1) Total Bilirubin 0.3 mg/dL (0.2-1.0) Aspartate Amino Transf (AST/SGOT) 20 U/L (15-37) Alanine Aminotransferase (ALT/SGPT) 30 U/L (16-63) Alkaline Phosphatase 72 U/L (46-116) Total Protein 7.4 g/dL (6.4-8.2) Albumin 4.0 g/dL (3.4-5.0) Albumin/Globulin Ratio 1.2 (1.0-1.7) Lipase 87 U/L (73-393) SARS-CoV-2 Antigen (Rapid) Negative (NEGATIVE) Urine Opiates Screen Pos (NEG) Urine Methadone Screen Neg (NEG) Urine Barbiturates Neg (NEG) Urine Phencyclidine Screen Neg (NEG) Urine Amphetamine/Methamphetamine Neg (NEG) Urine Benzodiazepines Screen Neg (NEG) Urine Cocaine Screen Neg (NEG) Urine Cannabinoids Screen Neg (NEG) Urine Ethyl Alcohol Neg (NEG) Images Images Operative Note Operative Note Operative Note Preoperative Diagnosis: Acute Appendicitis Postoperative Diagnosis: Same Procedure: Laparoscopic appendectomy Surgeon: Nemesio Anesthesia: Gen. EBL: 10 mL Specimen: Appendix to pathology Drains: None Complications: None Exam: CT of abdomen and pelvis with contrast INDICATION: Abdominal pain, right lower quadrant pain TECHNIQUE: Sequential axial images through the abdomen and pelvis obtained following the administration of 75 mL of Omni 300 IV contrast. Sagittal and coronal reformatted images were reconstructed from the axial data and reviewed. Comparisons: None FINDINGS: Heart size is normal. No pericardial effusion. Visualized lung bases are clear. No pleural effusion. Liver, spleen, pancreas, gallbladder and adrenals are unremarkable. No perinephric inflammation or hydronephrosis. No renal or ureteral calculi are identified. Bladder is partially distended and not well evaluated. Prostate is not enlarged. Appendix is dilated with mild adjacent fat stranding. Remainder large and small bowel are unremarkable. No obstruction. Abdominal aorta has a normal course and caliber. Abdominal vasculature is patent. No enlarged intra-abdominal lymph nodes are identified. No suspicious osseous lesions or acute fractures. IMPRESSION: Findings of acute appendicitis. No evidence for perforation or adjacent abscess. Exposure: One or more of the following in the visualized dose reduction techniques were utilized for this examination: 1. Automated exposure control 2. Adjustment of the MA and/or KV according to patient size 3. Use of iterative of reconstructive technique Electronically signed by: Zhane Frias MD (10/15/2020 7:43 PM) [facility] DICTATED and SIGNED BY: ZHANE FRIAS MD DATE: 10/15/20 [id number] 0 VTE Prophylaxis Ordered VTE Prophylaxis Devices: No VTE Pharmacological Prophylaxi: Yes Assessment/Plan Assessment/Plan IMPRESSION: acute appendicitis. No evidence for perforation or adjacent abscess. plan admit npo Laparoscopic appendectomy Dr Herr 10-16 IV FLUID SUPPORT DVT PROPHYLAXIS SCD'S Justifications for Admission Other Justification LAVONNE SIERRA MD Oct 16, 2020 10:18
[2020-10-16 10:49] VITALS: BP 123/67
[2020-10-16] MEDS: MORPHINE SULFATE 4 MG/ML VIAL. IV PRN (11:10)
[2020-10-16 12:04] LABS: % LYMPHS 5 % (24-48); % MONOS 1 % (0-10); % SEGS 94 % (35-66); PLT ESTIMATE ADEQUATE (ADEQUATE)
[2020-10-16 14:50] VITALS: BP 141/75
[2020-10-16 19:00] VITALS: BP 129/67
[2020-10-16] MEDS: oxyCODONE/APAP 5/325 1 TAB TABLET PO PRN (21:17)
[2020-10-16 23:12] VITALS: BP 109/59
[2020-10-17 03:37] VITALS: BP 97/54
[2020-10-17 07:00] VITALS: BP 107/47
[2020-10-17 07:31] LABS: BASO % 0 % (0-3); EOS # 0.1 x10^3/uL (0.0-0.7); EOS % 1 % (0-3); HEMATOCRIT 38.9 % (39.0-53.0); HEMOGLOBIN 13.4 g/dL (13.0-17.5); LYMPH # 1.8 x10^3/uL (1.0-4.8); LYMPH % 20 % (24-48); MEAN CORPUSCULAR HEMOGLOBIN 30 pg (25-35); MEAN CORPUSCULAR HGB CONC 34 g/dL (31-37); MEAN CORPUSCULAR VOLUME 88 fL (79-100); MONO # 0.8 x10^3/uL (0.0-1.1); MONO % 9 % (0-9); NEUT # 6.6 x10^3/uL (1.8-7.7); NEUT % 71 % (31-73); PLATELET COUNT 191 x10^3/uL (140-400); RED BLOOD COUNT 4.44 x10^6/uL (4.30-5.70); RED CELL DISTRIBUTION WIDTH 12.9 % (11.5-14.5); WHITE BLOOD COUNT 9.3 x10^3/uL (4.0-11.0)
[2020-10-17 07:41] LABS: CALCIUM 8.5 mg/dL (8.5-10.1); CREATININE 0.9 mg/dL (0.7-1.3); GFR 103.7; POTASSIUM 3.3 mmol/L (3.5-5.1)
[2020-10-17] MEDS ORDERED: POTASSIUM BICARB 20 MEQ EFFERVESCENT TABLET. PO ONE (08:15)
[2020-10-17] MEDS ORDERED: CIPR250T30 PO (09:12)
[2020-10-17] MEDS ORDERED: OXYC1TAB15 PO (09:12)
[2020-10-17] MEDS ORDERED: POTASSIUM CHLORIDE 20 MEQ TABLET.ER. PO ONE (09:15)
[2020-10-17] MEDS: oxyCODONE/APAP 5/325 1 TAB TABLET PO PRN (09:31)
--- NOTE | 2020-10-17 10:26 | NUR ---
SS following up with discharge planning. SS reviewed pt chart and discussed with pt RN. Pt is from home and is currently on room air. Pt had appendectomy on 10/16/2020. Pt on IV Levaquin. Discharge plan is to home when medically ready. SS will continue to follow for discharge planning.
[2020-10-17 11:00] VITALS: BP 150/88
--- NOTE | 2020-10-17 11:05 | PDOC ---
[employer] PROGRESS NOTE Date of Service DOS: DATE: 10/17/20 TIME: 11:03 Chief Complaint Chief Complaint acute appendicitis. No evidence for perforation or adjacent abscess. History of Present Illness History of Present Illness 25-year-old male who has no past medical or surgical history presents with a chief complaint of right lower quadrant abdominal pain. abdominal pain started 2200 2-27 . constant since onset. does not radiate. // associated nausea but has not vomited. relieved with rest. To OR for laparoscopic appendectomy with no signs of perforation. Tolerating PO well. Pain resolved. Wishes to return to work Vitals/I&O Vitals/I&O: Vital Signs Date Time Temp Pulse Resp B/P (MAP) Pulse Ox O2 Delivery O2 Flow Rate FiO2 10/17/20 09:31 18 98 Room Air 12.0 10/17/20 07:00 98.0 73 107/47 (67) 98.0 I & O 10/16/20 10/16/20 10/17/20 15:00 23:00 07:00 Intake Total 1600 ml 900 ml 450 ml Output Total 95 ml 1575 ml 350 ml Balance 1505 ml -675 ml 100 ml Physical Exam General: Alert, Oriented X3, Cooperative, No acute distress Heart: Regular rate Abdomen: Other (rlq tender) Extremities: No cyanosis Skin: No rashes, No breakdown Labs Labs: Laboratory Tests Test 10/17/20 06:00 White Blood Count 9.3 x10^3/uL (4.0-11.0) Red Blood Count 4.44 x10^6/uL (4.30-5.70) Hemoglobin 13.4 g/dL (13.0-17.5) Hematocrit 38.9 % (39.0-53.0) Mean Corpuscular Volume 88 fL (79-100) Mean Corpuscular Hemoglobin 30 pg (25-35) Mean Corpuscular Hemoglobin Concent 34 g/dL (31-37) Red Cell Distribution Width 12.9 % (11.5-14.5) Platelet Count 191 x10^3/uL (140-400) Neutrophils (%) (Auto) 71 % (31-73) Lymphocytes (%) (Auto) 20 % (24-48) Monocytes (%) (Auto) 9 % (0-9) Eosinophils (%) (Auto) 1 % (0-3) Basophils (%) (Auto) 0 % (0-3) Neutrophils # (Auto) 6.6 x10^3/uL (1.8-7.7) Lymphocytes # (Auto) 1.8 x10^3/uL (1.0-4.8) Monocytes # (Auto) 0.8 x10^3/uL (0.0-1.1) Eosinophils # (Auto) 0.1 x10^3/uL (0.0-0.7) Basophils # (Auto) 0.0 x10^3/uL (0.0-0.2) Sodium Level 142 mmol/L (136-145) Potassium Level 3.3 mmol/L (3.5-5.1) Chloride Level 106 mmol/L (98-107) Carbon Dioxide Level 28 mmol/L (21-32) Anion Gap 8 (6-14) Blood Urea Nitrogen 8 mg/dL (8-26) Creatinine 0.9 mg/dL (0.7-1.3) Estimated GFR (Cockcroft-Gault) 103.7 Glucose Level 96 mg/dL (70-99) Calcium Level 8.5 mg/dL (8.5-10.1) Assessment and Plan Assessmemt and Plan Problems Medical Problems: (1) Acute appendicitis Status: Acute Comment Review of Relevant I have reviewed the following items anna (where applicable) has been applied. Medications: Current Medications Medications (Trade) Dose Ordered Sig/Mo Route PRN Reason Start Time Stop Time Status Last Admin Dose Admin Potassium Chloride (Klor-Con) 40 meq 1X ONCE PO 10/17/20 09:15 10/17/20 09:21 DC 10/17/20 09:30 Justifications for Admission Other Justification MARY CARMEN NETTLES MD Oct 17, 2020 11:05
--- NOTE | 2020-10-17 11:07 | PDOC3 ---
Discharge Summary Visit Information Date of Admission: Oct 15, 2020 Date of Discharge: Oct 17, 2020 Admitting Diagnosis: Acute appendicitis Final Diagnosis Problems Medical Problems: (1) Acute appendicitis Status: Acute Brief Hospital Course Allergies Allergies Coded Allergies Type Severity Reaction Last Updated Verified Penicillins Allergy Intermediate 10/15/20 Yes Vital Signs Vital Signs Date Time Temp Pulse Resp B/P (MAP) Pulse Ox O2 Delivery O2 Flow Rate FiO2 10/17/20 09:31 18 98 Room Air 12.0 10/17/20 07:00 98.0 73 107/47 (67) 98.0 Lab Results Laboratory Tests Test 10/15/20 18:25 10/15/20 21:20 10/16/20 00:10 10/16/20 09:15 White Blood Count 13.0 x10^3/uL (4.0-11.0) 14.7 x10^3/uL (4.0-11.0) Red Blood Count 5.18 x10^6/uL (4.30-5.70) 4.76 x10^6/uL (4.30-5.70) Hemoglobin 15.5 g/dL (13.0-17.5) 14.1 g/dL (13.0-17.5) Hematocrit 45.5 % (39.0-53.0) 41.9 % (39.0-53.0) Mean Corpuscular Volume 88 fL (79-100) 88 fL (79-100) Mean Corpuscular Hemoglobin 30 pg (25-35) 30 pg (25-35) Mean Corpuscular Hemoglobin Concent 34 g/dL (31-37) 34 g/dL (31-37) Red Cell Distribution Width 12.6 % (11.5-14.5) 12.8 % (11.5-14.5) Platelet Count 218 x10^3/uL (140-400) 194 x10^3/uL (140-400) Neutrophils (%) (Auto) 73 % (31-73) 92 % (31-73) Lymphocytes (%) (Auto) 19 % (24-48) 5 % (24-48) Monocytes (%) (Auto) 6 % (0-9) 3 % (0-9) Eosinophils (%) (Auto) 1 % (0-3) 0 % (0-3) Basophils (%) (Auto) 1 % (0-3) 0 % (0-3) Neutrophils # (Auto) 9.5 x10^3/uL (1.8-7.7) 13.5 x10^3/uL (1.8-7.7) Lymphocytes # (Auto) 2.5 x10^3/uL (1.0-4.8) 0.8 x10^3/uL (1.0-4.8) Monocytes # (Auto) 0.8 x10^3/uL (0.0-1.1) 0.5 x10^3/uL (0.0-1.1) Eosinophils # (Auto) 0.2 x10^3/uL (0.0-0.7) 0.0 x10^3/uL (0.0-0.7) Basophils # (Auto) 0.1 x10^3/uL (0.0-0.2) 0.0 x10^3/uL (0.0-0.2) Sodium Level 139 mmol/L (136-145) 139 mmol/L (136-145) Potassium Level 3.9 mmol/L (3.5-5.1) 3.9 mmol/L (3.5-5.1) Chloride Level 103 mmol/L (98-107) 106 mmol/L (98-107) Carbon Dioxide Level 27 mmol/L (21-32) 25 mmol/L (21-32) Anion Gap 9 (6-14) 8 (6-14) Blood Urea Nitrogen 16 mg/dL (8-26) 11 mg/dL (8-26) Creatinine 0.9 mg/dL (0.7-1.3) 1.0 mg/dL (0.7-1.3) Estimated GFR (Cockcroft-Gault) 103.7 91.8 BUN/Creatinine Ratio 18 (6-20) Glucose Level 96 mg/dL (70-99) 132 mg/dL (70-99) Calcium Level 8.7 mg/dL (8.5-10.1) 8.5 mg/dL (8.5-10.1) Total Bilirubin 0.3 mg/dL (0.2-1.0) Aspartate Amino Transf (AST/SGOT) 20 U/L (15-37) Alanine Aminotransferase (ALT/SGPT) 30 U/L (16-63) Alkaline Phosphatase 72 U/L (46-116) Total Protein 7.4 g/dL (6.4-8.2) Albumin 4.0 g/dL (3.4-5.0) Albumin/Globulin Ratio 1.2 (1.0-1.7) Lipase 87 U/L (73-393) SARS-CoV-2 Antigen (Rapid) Negative (NEGATIVE) Urine Opiates Screen Pos (NEG) Urine Methadone Screen Neg (NEG) Urine Barbiturates Neg (NEG) Urine Phencyclidine Screen Neg (NEG) Urine Amphetamine/Methamphetamine Neg (NEG) Urine Benzodiazepines Screen Neg (NEG) Urine Cocaine Screen Neg (NEG) Urine Cannabinoids Screen Neg (NEG) Urine Ethyl Alcohol Neg (NEG) Segmented Neutrophils % 94 % (35-66) Lymphocytes % 5 % (24-48) Monocytes % 1 % (0-10) Platelet Estimate Adequate (ADEQUATE) Test 10/17/20 06:00 White Blood Count 9.3 x10^3/uL (4.0-11.0) Red Blood Count 4.44 x10^6/uL (4.30-5.70) Hemoglobin 13.4 g/dL (13.0-17.5) Hematocrit 38.9 % (39.0-53.0) Mean Corpuscular Volume 88 fL (79-100) Mean Corpuscular Hemoglobin 30 pg (25-35) Mean Corpuscular Hemoglobin Concent 34 g/dL (31-37) Red Cell Distribution Width 12.9 % (11.5-14.5) Platelet Count 191 x10^3/uL (140-400) Neutrophils (%) (Auto) 71 % (31-73) Lymphocytes (%) (Auto) 20 % (24-48) Monocytes (%) (Auto) 9 % (0-9) Eosinophils (%) (Auto) 1 % (0-3) Basophils (%) (Auto) 0 % (0-3) Neutrophils # (Auto) 6.6 x10^3/uL (1.8-7.7) Lymphocytes # (Auto) 1.8 x10^3/uL (1.0-4.8) Monocytes # (Auto) 0.8 x10^3/uL (0.0-1.1) Eosinophils # (Auto) 0.1 x10^3/uL (0.0-0.7) Basophils # (Auto) 0.0 x10^3/uL (0.0-0.2) Sodium Level 142 mmol/L (136-145) Potassium Level 3.3 mmol/L (3.5-5.1) Chloride Level 106 mmol/L (98-107) Carbon Dioxide Level 28 mmol/L (21-32) Anion Gap 8 (6-14) Blood Urea Nitrogen 8 mg/dL (8-26) Creatinine 0.9 mg/dL (0.7-1.3) Estimated GFR (Cockcroft-Gault) 103.7 Glucose Level 96 mg/dL (70-99) Calcium Level 8.5 mg/dL (8.5-10.1) Laboratory Tests Test 10/17/20 06:00 White Blood Count 9.3 x10^3/uL (4.0-11.0) Red Blood Count 4.44 x10^6/uL (4.30-5.70) Hemoglobin 13.4 g/dL (13.0-17.5) Hematocrit 38.9 % (39.0-53.0) Mean Corpuscular Volume 88 fL (79-100) Mean Corpuscular Hemoglobin 30 pg (25-35) Mean Corpuscular Hemoglobin Concent 34 g/dL (31-37) Red Cell Distribution Width 12.9 % (11.5-14.5) Platelet Count 191 x10^3/uL (140-400) Neutrophils (%) (Auto) 71 % (31-73) Lymphocytes (%) (Auto) 20 % (24-48) Monocytes (%) (Auto) 9 % (0-9) Eosinophils (%) (Auto) 1 % (0-3) Basophils (%) (Auto) 0 % (0-3) Neutrophils # (Auto) 6.6 x10^3/uL (1.8-7.7) Lymphocytes # (Auto) 1.8 x10^3/uL (1.0-4.8) Monocytes # (Auto) 0.8 x10^3/uL (0.0-1.1) Eosinophils # (Auto) 0.1 x10^3/uL (0.0-0.7) Basophils # (Auto) 0.0 x10^3/uL (0.0-0.2) Sodium Level 142 mmol/L (136-145) Potassium Level 3.3 mmol/L (3.5-5.1) Chloride Level 106 mmol/L (98-107) Carbon Dioxide Level 28 mmol/L (21-32) Anion Gap 8 (6-14) Blood Urea Nitrogen 8 mg/dL (8-26) Creatinine 0.9 mg/dL (0.7-1.3) Estimated GFR (Cockcroft-Gault) 103.7 Glucose Level 96 mg/dL (70-99) Calcium Level 8.5 mg/dL (8.5-10.1) Brief Hospital Course Mr Vargas is a 25-year-old male who has no past medical or surgical history presents with a chief complaint of right lower quadrant abdominal pain. abdominal pain started 2200 2-27 . constant since onset. does not radiate. // associated nausea but has not vomited. relieved with rest. To OR for laparoscopic appendectomy with no signs of perforation. Tolerating PO well. Pain resolved. Wishes to return to work Problem list: acute appendicitis. No evidence for perforation or adjacent abscess. Greater than 30 minutes spent on d/c home with 3 days cipro and percocet #8 Consults: General surgery Discharge Information Condition at Discharge: Improved Follow Up: Weeks (1) Disposition/Orders: D/C to Home Scheduled Ciprofloxacin Hcl (Cipro) 250 Mg Tablet, 1 TAB PO BID for Appendicitis for 3 Days, #6 Ref 0 Prescribed by: MARY CARMEN NETTLES MD on 10/17/20911 Info (No Known Medications Prior To Admisstion) Each, 1 EACH 1X for doest take meds, (Reported) Entered as Reported by: Neal Nesbitt on 10/15/202154 Last Action: New Order on 10/15/202154 by Neal Nesbitt Scheduled PRN Oxycodone/Apap 5-325 (Percocet 5-325 Mg Tablet ) 1 Each Tablet, 1 TAB PO PRN Q4HRS PRN for MODERATE PAIN for 3 Days, #8 Prescribed by: MARY CARMEN NETTLES MD on 10/17/20912 Justicifation of Admission Dx: Justifications for Admission: Justification of Admission Dx: Yes MARY CARMEN NETTLES MD Oct 17, 2020 11:07
--- NOTE | 2020-10-17 13:15 | NUR ---
DISCHARGED PATIENT HOME. DISCHARGE INSTRUCTIONS GIVEN. PIV AND HEART MONITOR GIVEN. ESCORTED PATIENT OFF UNIT PER WHEELCHAIR INTO A PRIVATE VEHICLE.
--- NOTE | 2020-10-19 15:09 | PATHOLOGY ---
[facility] Accession Number: [id number] . 01 Material submitted: . appendix - APPENDIX . 02 Diagnosis: Appendix, laparoscopic appendectomy: - Acute appendicitis with focal serosal exudate. (M:[facility] 10/19/2020) [facility] 10/19/2020 1217 Local . 02 Comment: There is no evidence of rupture. ([facility] 10/19/2020) . 02 Electronically signed: . Christopher Trejo MD, Pathologist NPI- [id number] . 01 Gross description: . The specimen is received in formalin, labeled "Mckeon, Falay, appendix" and consists of an appendix measuring 7.0 cm in length and up to 1.1 cm in diameter with mesoappendix measuring 2.1 cm thick. The serosa is guerrero-brown with thick white adhesions. The margin is closed with a line of katie and inked black. Sectioning reveals a dilated lumen with no fecalith. Motorman/Woman sections are submitted in A1-A2. (SD; 10/18/2020) SYU/SYU 10/18/2020 1124 Local . 02 Pathologist provided ICD-10: K35.80 . 02 CPT . 950159 Specimen Comment: Report sent to [facility]formed [facility]: [facility] [address], [place], [place] [id number] MD Cecilio Linda MD Phone: [phone] Performed at: [facility] [address], [place] [id number] MD Christopher Trejo MD Phone: [phone]
== END 2020-10-17 13:10 | disposition home or self-care (01) ==
LOC: ER 17:23 → 2 NORTH 20:23
PROVIDERS: ADMIT Internal Medicine; ATTEND Internal Medicine
DX: K35.80 Unspecified acute appendicitis (principal); K85.90 Acute pancreatitis without necrosis or infection, unspecified; F17.210 Nicotine dependence, cigarettes, uncomplicated; Z20.822 Contact with and (suspected) exposure to COVID-19; Z79.899 Other long term (current) drug therapy
CPT/HCPCS: 36415; 44970; 74177; 80048; 80053; 80307; 83690; 85007; 85025; 87426; 96361; 96365; 96366; 96368; 96375; 96376; 99285; A4314; G0378; J0780; J1100; J1885; J1956; J2270; J2405; J2704; J3490; J7030; J7120; Q9967; U0003; 88304; G0379; J3010